=== PATIENT | female | born 1990 | race American Indian/Alaskan Native ===

== ENCOUNTER 2017-05-27 14:33 | Emergency (ER) | payer MEDICAID, OTHER ==
[2017-05-27 14:34] VITALS: BMI 25.7
[2017-05-27 14:44] VITALS: BP 119/41; PULSE 82; RESP 16; TEMP 97.9; O2SAT 100
--- NOTE | 2017-05-27 15:05 | ED PDOC ---
HPI: CCC, URI, Sore Throat Time Seen by Provider: 05/27/17 14:50 Chief Complaint (Nursing): Flu-like Symptoms Chief Complaint (Provider): Body aches and productive cough History Per: Patient History/Exam Limitations: no limitations Onset/Duration Of Symptoms: Other (Two weeks) Current Symptoms Are (Timing): Still Present Sick Contacts (Context): None Additional Complaint(s): Patient is a 26 y/o female with a past medical history of asthma presenting to the emergency department for body aches, head pain, sore throat, a productive cough, and several episodes of emesis (last episode was yesterday) ongoing for two weeks ago. Also notes pleuritic chest pain and a fever of which the highest temperature noted was 101 degrees F. Denies sick contacts or other complaints. Patient also expresses concern about possible STD. Admits that she had unprotected sex on 05/23/17, and reports white vaginal discharge. Denies taking any antibiotics, denies anal discharge or itchiness, vaginal or anal blisters, foul vaginal smell, white pharyngeal exudates, dysuria, painful intercourse, suprapubic pain, or other complaints. PCP: none provided. Past Medical History Reviewed: Historical Data, Nursing Documentation, Vital Signs Vital Signs: Last Vital Signs Temp 97.9 F 05/27/17 14:40 Pulse 82 05/27/17 14:40 Resp 16 05/27/17 14:40 BP 119/41 L 05/27/17 14:40 Pulse Ox 100 05/27/17 15:24 - Medical History PMH: Arthritis, Asthma, Kidney Stones, Chronic Kidney Disease Denies: Depression - Family History Family History: States: Unknown Family Hx - Social History Current smoker - smoking cessation education provided: No Ex-Smoker (has not smoked in the last 12 months): Yes Alcohol: None Drugs: Cannabis - Immunization History Hx Tetanus Toxoid Vaccination: No Hx Influenza Vaccination: No Hx Pneumococcal Vaccination: No - Home Medications Home Medications: Ambulatory Orders Medication Instructions Recorded Guaifenesin/Pseudoephedrne HCl 1 ter PO Q12H PRN #10 ter 08/22/16 [Mucinex D 600 mg-60 mg] Albuterol HFA [Ventolin HFA 90 2 puff IH Q6 #200 puff 05/27/17 mcg/actuation (8 g)] Dextromethorphan Polistirex 30 mg PO BID #100 misha.er.12h 05/27/17 [Delsym] - Allergies Allergies/Adverse Reactions: Allergies Allergy/AdvReac Type Severity Reaction Status Date / Time FISH Allergy PAIN Verified 05/27/17 14:40 mushroom Allergy SWELLING Uncoded 05/27/17 14:40 zuchini Allergy ANAPHYLAXIS Uncoded 05/27/17 14:40 Review of Systems ROS Statement: Except As Marked, All Systems Reviewed And Found Negative Constitutional: Positive for: Fever ENT: Positive for: Ear Pain (mild, bilateral), Throat Pain Respiratory: Positive for: Cough (productive), Pleuritic Pain, Sputum (green) Gastrointestinal: Positive for: Vomiting Genitourinary Female: Positive for: Vaginal Discharge (white). Negative for: Dysuria Physical Exam - Reviewed Nursing Documentation Reviewed: Yes Vital Signs Reviewed: Yes - Physical Exam Appears: Positive for: Well, Non-toxic, No Acute Distress Head Exam: Positive for: ATRAUMATIC, NORMAL INSPECTION, NORMOCEPHALIC Skin: Positive for: Normal Color, Warm, Dry Eye Exam: Positive for: Normal appearance ENT: Positive for: Normal ENT Inspection, Pharynx Is (normal), TM Is/Are (normal ). Negative for: Pharyngeal Erythema, Tonsillar Exudate, Tonsillar Swelling Cardiovascular/Chest: Positive for: Regular Rate, Rhythm Respiratory: Positive for: Normal Breath Sounds. Negative for: Accessory Muscle Use, Respiratory Distress Extremity: Positive for: Normal ROM Lymphatic: Positive for: Other (lymph node swelling noted) Neurologic/Psych: Positive for: Alert, Oriented (x3) - ECG O2 Sat by Pulse Oximetry: 100 (RA) Pulse Ox Interpretation: Normal Medical Decision Making Medical Decision Making: Time: 15:06 Initial impression: Body aches and productive cough. Initial plan: Chest X-ray ED Urine Chlamydia/gonorrhea test HSV test Rapid HIV screening Rapid Plasma Reagin Stat Reevaluation pt with negative HIV. pt advised to abstain from sexual intercourse until results are in. Chest negative. rolando d/c on deylsm for cough and albtuerol inh ~ Scribe Attestation: Documented by Yana Moreau, acting as a scribe for LUCY Payne. Provider Scribe Attestation: All medical record entries made by the Scribe were at my direction and personally dictated by me. I have reviewed the chart and agree that the record accurately reflects my personal performance of the history, physical exam, medical decision making, and the department course for this patient. I have also personally directed, reviewed, and agree with the discharge instructions and disposition. Disposition - Clinical Impression Clinical Impression: Upper respiratory infection, Sexually transmitted disease exposure - Patient ED Disposition Is Patient to be Admitted: No Counseled Patient/Family Regarding: Studies Performed, Diagnosis, Need For Followup, Rx Given - Disposition Referrals: [facility] [Outside] Disposition: Routine/Home Disposition Time: 16:58 Condition: STABLE Prescriptions: Albuterol HFA [Ventolin HFA 90 mcg/actuation (8 g)] 2 puff IH Q6 #200 puff Dextromethorphan Polistirex [Delsym] 30 mg PO BID #100 misha.er.12h Instructions: Sexually Transmitted Diseases (ED), Condom Use (ED), Safe Sex (ED ) Forms: [employer] Connect (Korean)
== END 2017-05-27 17:26 | disposition home or self-care (01) ==
LOC: H.ER 14:33
DX: J06.9 Acute upper respiratory infection, unspecified (principal); Z20.2 Contact with and (suspected) exposure to infections with a predominantly sexual mode of transmission

== ENCOUNTER 2018-06-01 14:57 | Emergency (ER) | payer MEDICAID, OTHER ==
[2018-06-01 14:58] VITALS: BMI 25.7
[2018-06-01 15:18] VITALS: BP 117/58; PULSE 71; RESP 18; TEMP 98.2; O2SAT 100
--- NOTE | 2018-06-01 15:41 | ED PDOC ---
Upper Extremity Pain/Injury Time Seen by Provider: 06/01/18 15:19 Chief Complaint (Nursing): Upper Extremity Problem/Injury Chief Complaint (Provider): Upper Extremity Problem/Injury History Per: Patient History/Exam Limitations: no limitations Onset/Duration Of Symptoms: Days Additional Complaint(s): Patient reports diffuse body aches and torso pain since this weekend when she fell down a flight of stairs at home. Patient cannot estimate how many stairs she fell down. She is unable to localize the pain, stating "it's all over" and notes it worsens with movements. Patient is also requesting a test at this time. LMP was supposed to be on May 19 but she still has not gotten it. She has not taken a test at home. She states she needs a note to be able to return to work since her fall. Otherwise: (-) numbness/loss of sensation, (-) head injury, (-) LOC, (-) dizziness, (-) headache (-) abdominal pain, (-) chest pain (-) SOB (-) fever (-) N/V (-) visual changes (-) saddle anesthesia or incontinence. PMD: No provider LMP: suppose to be on may 19 but has not gotten it yet GPA: 4,1,3 Past Medical History Reviewed: Historical Data, Nursing Documentation, Vital Signs Vital Signs: Last Vital Signs Temp 98.2 F 06/01/18 15:15 Pulse 71 06/01/18 15:15 Resp 18 06/01/18 15:15 BP 117/58 L 06/01/18 15:15 Pulse Ox 100 06/01/18 15:15 - Medical History PMH: Arthritis, Asthma, Kidney Stones - Surgical History Other surgeries: Ovarian cyst removed - Family History Family History: States: Unknown Family Hx - Social History Drugs: Cannabis - Home Medications Home Medications: Ambulatory Orders Medication Instructions Recorded Guaifenesin/Pseudoephedrne HCl 1 ter PO Q12H PRN #10 ter 08/22/16 [Mucinex D 600 mg-60 mg] Dextromethorphan Polistirex 30 mg PO BID #100 misha.er.12h 05/27/17 [Delsym] RX: Albuterol HFA [Ventolin HFA 90 2 puff IH Q6 #200 puff 05/27/17 mcg/actuation (8 g)] Acetaminophen [Acetaminophen 8 650 mg PO Q8 PRN #21 tablet.er 06/01/18 Hour] RX: Naproxen 500 mg PO BID PRN #20 tab 06/01/18 - Allergies Allergies/Adverse Reactions: Allergies Allergy/AdvReac Type Severity Reaction Status Date / Time FISH Allergy PAIN Verified 06/01/18 15:15 mushroom Allergy SWELLING Uncoded 05/27/17 14:40 [email or web address] Allergy ANAPHYLAXIS Uncoded 05/27/17 14:40 Review of Systems ROS Statement: Except As Marked, All Systems Reviewed And Found Negative Constitutional: Negative for: Fever Eyes: Negative for: Vision Change Cardiovascular: Negative for: Chest Pain Respiratory: Negative for: Cough, Shortness of Breath Gastrointestinal: Negative for: Nausea, Vomiting, Abdominal Pain Neurological: Negative for: Weakness, Numbness, Dizziness, Other (loss of consciousness) Physical Exam - Reviewed Nursing Documentation Reviewed: Yes Vital Signs Reviewed: Yes - Physical Exam Comments: GENERAL APPEARANCE: Patient is awake, alert, oriented x 3, in no acute distress. Resting comfortably. (+) odor of marijuana SKIN: Warm, dry; (-) cyanosis. HEAD: (-) scalp tenderness or hematoma (-) palpable deformity NECK: Supple, FROM (-) midline tenderness ENT: FROM of mandible. Dentition intact and nontender. (-) facial bone tenderness Lungs: (-) rales, (-) rhonchi, (-) wheezes; breath sounds equal bilaterally. Respirations even and nonlabored, speaking in full sentences. HEART AND CARDIOVASCULAR: (-) irregularity Abdomen: Soft, (-) tenderness (-) guarding (-) distention (-) palpable mass EXTREMITIES: (+) Full ROM of all joints (+) diffuse tenderness to the bilateral upper extremities (-) edema (-) erythema (-) ecchymosis (-) crepitus BACK: (+) bilateral parathoracic and paralumbar tenderness (-) midline tenderness NEURO AND PSYCH: Mental status as above. Gait: steady. Speech: clear. GS=15. entry level finance: grossly intact. Cerebellar tests grossly intact. EOMI and painless. Pupils equal and reactive. - Laboratory Results Urine POC: Negative - ECG O2 Sat by Pulse Oximetry: 100 (RA) Pulse Ox Interpretation: Normal Medical Decision Making Medical Decision Making: Initial Time: 15:20 Initial Impression: Musculoskeletal pain S/P fall, test Initial Plan: --ED test --Tylenol 650 mg PO --Re-evaluation 1540 ED test: negative --Toradol 30mg IM ordered 1625 On re-evaluation, patient reports improvement of symptoms. On exam, patient remains AAOx3, in no acute distress. Lungs clear to auscultation, cardiac RRR, abdomen soft, non-tender, repeat neuro exam shows no focal findings. Vitals stable. Lab/Diagnostic results d/w the patient in great detail. Diagnosis of musculoskeletal pain s/p fall on stairs, negative test d/w the patient. Based on history, exam and diagnostic results, plan will be for outpatient follow up with clinic. Patient instructed to follow-up with pmd / referral provided / the clinic in 1- 2 days without fail. Advised to take medication as prescribed. Return to the emergency room at any time for any new or worsening symptoms. Patient states she fully agrees with and understands discharge instructions. States that she agrees with the plan and disposition. Verbalized and repeated discharge instructions and plan. I have given the patient opportunity to ask any additional questions. Scribe Attestation: Documented by Mickey Alejo, acting as a scribe for Lachelle Conti Provider Scribe Attestation: All medical record entries made by the Scribe were at my direction and personally dictated by me. I have reviewed the chart and agree that the record accurately reflects my personal performance of the history, physical exam, medical decision making, and the department course for this patient. I have also personally directed, reviewed, and agree with the discharge instructions and disposition. Disposition - Clinical Impression Clinical Impression: Musculoskeletal pain, Negative test - Patient ED Disposition Is Patient to be Admitted: No Counseled Patient/Family Regarding: Studies Performed, Diagnosis, Need For Followup, Rx Given - Disposition Referrals: [facility] [Outside] Disposition: Routine/Home Disposition Time: 16:25 Condition: STABLE Additional Instructions: The emergency medical care you received today was directed at your acute symptoms. If you were prescribed any medication, please fill it and take as directed. It may take several days for your symptoms to resolve. Return to the Emergency Department if your symptoms worsen, do not improve, or if you have any other problems. Please contact your doctor in 2 days for re-evaluation and follow up / or call one of the physicians/clinics you have been referred to that are listed on the Patient Visit Information form that is included in your discharge packet. Bring any paperwork you were given at discharge with you along with any medications you are taking to your follow up visit. Our treatment cannot replace ongoing medical care by a primary care provider (PCP) outside of the emergency department. Prescriptions: Acetaminophen [Acetaminophen 8 Hour] 650 mg PO Q8 PRN #21 tablet.er PRN Reason: Pain, Moderate (4-7) RX: Naproxen 500 mg PO BID PRN #20 tab PRN Reason: Pain, Moderate (4-7) Instructions: Tests, Muscle and Bone Pain (DC) Forms: [employer] ([place]), [facility] ED School/Work Excuse Print Language: UPPER SORBIAN - POA Present On Arrival: None
== END 2018-06-01 16:44 | disposition home or self-care (01) ==
LOC: H.ER 14:57
DX: M79.18 Myalgia, other site (principal); W10.9XXA Fall (on) (from) unspecified stairs and steps, initial encounter; Y92.89 Other specified places as the place of occurrence of the external cause; Z32.02 Encounter for pregnancy test, result negative
CPT/HCPCS: 81025; 96372; 99283; J1885

== ENCOUNTER 2018-07-09 09:12 | Emergency (ER) | payer MEDICAID ==
[2018-07-09 09:30] VITALS: BMI 24.0
[2018-07-09 09:32] VITALS: TEMP 97.7; O2SAT 99
[2018-07-09] MEDS ORDERED: Sodium Chloride 0.9% 1,000 ML IV STA (09:55)
--- NOTE | 2018-07-09 10:49 | ED PDOC ---
HPI: Abdomen Time Seen by Provider: 07/09/18 09:45 Chief Complaint (Nursing): Abdominal Pain Chief Complaint (Provider): Abdominal Pain History Per: Patient History/Exam Limitations: no limitations Onset/Duration Of Symptoms: Days, Worse Since Current Symptoms Are (Timing): Still Present Location Of Pain/Discomfort: Suprapubic Quality Of Discomfort: "Pain" Additional Complaint(s): 27 year old female with asthma presents to the ED for an evaluation of abdominal pain onset for 3 weeks. Patient states the pain radiates to her back and ovaries. Associated with nausea, light headedness, chills and vomits whenever she consumes liquid or solid. She states her last menstrual period was on 06/10/18 and patient is sexually active. She has an appointment with her doctor next week but due to pain, she came to ED. Denies fever, diarrhea, vaginal bleeding or urinary symptoms. ANESTHESIOLOGY MEDICAL DOCTOR: Beba Joseph Past Medical History Reviewed: Historical Data, Nursing Documentation, Vital Signs Vital Signs: Last Vital Signs Temp 97.7 F 07/09/18 09:30 Pulse 74 07/09/18 09:30 Resp 18 07/09/18 09:30 BP 104/59 L 07/09/18 09:30 Pulse Ox 99 07/09/18 09:30 - Medical History PMH: Anemia, Anxiety, Asthma, Depression, Kidney Stones (4 years ago), Post Traumatic Stress Disorder, Chronic Kidney Disease Denies: Arthritis (pt denies) - Family History Family History: States: Unknown Family Hx - Social History Alcohol: None Drugs: Cannabis - Immunization History Hx Tetanus Toxoid Vaccination: No Hx Influenza Vaccination: No Hx Pneumococcal Vaccination: No - Home Medications Home Medications: Ambulatory Orders Medication Instructions Recorded Guaifenesin/Pseudoephedrne HCl 1 ter PO Q12H PRN #10 ter 08/22/16 [Mucinex D 600 mg-60 mg] Albuterol HFA [Ventolin HFA 90 2 puff IH Q6 #200 puff 05/27/17 mcg/actuation (8 g)] Dextromethorphan Polistirex 30 mg PO BID #100 misha.er.12h 05/27/17 [Delsym] Acetaminophen [Acetaminophen 8 650 mg PO Q8 PRN #21 tablet.er 06/01/18 Hour] Naproxen 500 mg PO BID PRN #20 tab 06/01/18 Naproxen [Naprosyn] 500 mg PO BID PRN #20 tablet 07/09/18 - Allergies Allergies/Adverse Reactions: Allergies Allergy/AdvReac Type Severity Reaction Status Date / Time FISH Allergy PAIN Verified 06/01/18 15:15 mushroom Allergy SWELLING Uncoded 05/27/17 14:40 [email or web address] Allergy ANAPHYLAXIS Uncoded 05/27/17 14:40 Review of Systems ROS Statement: Except As Marked, All Systems Reviewed And Found Negative Constitutional: Positive for: Chills. Negative for: Fever Cardiovascular: Negative for: Chest Pain Gastrointestinal: Positive for: Nausea, Vomiting, Abdominal Pain. Negative for: Diarrhea Genitourinary Female: Positive for: Vaginal Discharge. Negative for: Dysuria, Frequency, Incontinence, Vaginal Bleeding Neurological: Positive for: Other (light headedness) Physical Exam - Reviewed Nursing Documentation Reviewed: Yes Vital Signs Reviewed: Yes - Physical Exam Appears: Positive for: Uncomfortable, In Acute Distress Head Exam: Positive for: ATRAUMATIC, NORMAL INSPECTION, NORMOCEPHALIC Skin: Positive for: Normal Color, Warm, Dry. Negative for: Rash Eye Exam: Positive for: Normal appearance Neck: Positive for: Normal, Painless ROM, Supple. Negative for: Decreased ROM Cardiovascular/Chest: Positive for: Regular Rate, Rhythm. Negative for: Murmur Respiratory: Positive for: Normal Breath Sounds. Negative for: Decreased Breath Sounds, Wheezing, Respiratory Distress Gastrointestinal/Abdominal: Positive for: Tenderness (bilateral lower abdominal and suprapubic ) Pelvic Exam: Positive for: External Exam Normal (normal external genital, normal cervix, no erythema), Discharge (creamy mucus-like discharge on cervical area), Other (fraud examiner nurse Jumana accompanied by another nurse ). Negative for: Bimanual Exam Normal (Bimanual exam tenderness to uterine ) Back: Positive for: Normal Inspection. Negative for: L CVA Tenderness, R CVA Tenderness Extremity: Positive for: Normal ROM. Negative for: Tenderness, Pedal Edema, Deformity Neurologic/Psych: Positive for: Alert, Oriented (x3). Negative for: Motor/Sensory Deficits - Laboratory Results Result Diagrams: 07/09/18 11:20 07/09/18 12:39 - ECG O2 Sat by Pulse Oximetry: 99 (RA) Pulse Ox Interpretation: Normal Medical Decision Making Medical Decision Making: Time: 953 Initial Plan: CMP Urine Urine Dipstick CBC w/ Differential Chlamydia/ GC RNA, TMA Normal Saline 1000 Toradol 30mg Genital Culture IV Insertion Reevaluation ------ Scribe Attestation: Documented by Chani Jorgensen, acting as a scribe for Gabrielle Russo MD. Provider Scribe Attestation: All medical record entries made by the Scribe were at my direction and personally dictated by me. I have reviewed the chart and agree that the record accurately reflects my personal performance of the history, physical exam, medical decision making, and the department course for this patient. I have also personally directed, reviewed, and agree with the discharge instructions and disposition. Disposition - Clinical Impression Clinical Impression: Ovarian cyst - Patient ED Disposition Is Patient to be Admitted: No Doctor Will See Patient In The: Office Counseled Patient/Family Regarding: Diagnosis, Need For Followup, Rx Given - Disposition Referrals: [facility] [Outside] [facility] [Outside] [facility] [Outside] Disposition: Routine/Home Disposition Time: 13:09 Condition: IMPROVED Prescriptions: Naproxen [Naprosyn] 500 mg PO BID PRN #20 tablet PRN Reason: Pain, Moderate (4-7) Instructions: Ovarian Cysts Forms: [employer] ([place]) - POA Present On Arrival: None
[2018-07-09 11:41] LABS: BASO # 0.1 K/uL (0.0-0.2); EOS # 0.2 K/uL (0.0-0.7); LYMPH # 2.2 K/uL (1.0-4.3); MONO # 0.3 K/uL (0.0-0.8)
[2018-07-09 12:02] LABS: BASO % 1.5 % (0.0-2.0); EOS % 3.9 % (0.0-4.0); LYMPH % 38.6 % (20.0-40.0); MEAN CELL VOLUME 67.8 fl (81.0-99.0); MEAN CORPUSCULAR HEMOGLOBIN 19.7 pg (27.0-31.0); MEAN PLATELET VOLUME 8.1 fl (7.2-11.7); MONO % 5.4 % (0.0-10.0); NEUT # 2.9 K/uL (1.8-7.0); NEUT % 50.6 % (50.0-75.0); NRBC % 0.2 % (0.0-0.0); RBC 4.53 Mil/uL (3.80-5.20); RED CELL DISTRIBUTION WIDTH 19.7 % (11.5-14.5); WHITE BLOOD COUNT 5.8 K/uL (4.8-10.8)
[2018-07-09 12:07] LABS: HEMOGLOBIN 8.9 g/dL (12.0-16.0)
--- NOTE | 2018-07-09 12:38 | US ---
Date of service: 07/09/2018 HISTORY: Pelvic pain 3 weeks duration. LMP 06/09/2018. Irregular cycles. COMPARISON: None available. TECHNIQUE: Transvaginal only. Real -time technique with 2D, duplex and color Doppler FINDINGS: UTERUS: Measures 4.5 x 6.3 x 8.9 cm. Normal in size and appearance. No fibroid or other mass lesion seen. ENDOMETRIUM: Measures 10.0 mm in diameter. No ultrasound findings to suggest gestational sac, fluid, debris, mass or polyp or other pathologic process within the endometrium. CERVIX: No cervical abnormality identified. RIGHT OVARY: Measures 2.0 x 4.3 x 4.3 cm. No solid mass. Normal flow. Multiple subcentimeter follicles. LEFT OVARY: Measures 2.4 x 3.1 x 4.6 cm. No solid mass. Normal flow. Dominant cyst 1.7 cm. Multiple subcentimeter follicles. FREE FLUID: Trace free fluid identified in the pelvis/cul de sac. OTHER FINDINGS: Unremarkable uterus/endometrial echo complex. Bilateral subcentimeter follicles. Dominant 1.7 cm cyst left ovary. Low volume free fluid identified in the cul-de-sac. IMPRESSION: Unremarkable pelvic ultrasound.
[2018-07-09 12:58] LABS: ALB/GLOB RATIO 1.1 (1.0-2.1); ALBUMIN 3.7 g/dL (3.5-5.0); ALT/SGPT 23 U/L (9-52); AST/SGOT 24 U/L (14-36); BLOOD UREA NITROGEN 8 mg/dl (7-17); CALCIUM 8.8 mg/dL (8.4-10.2); GFR NON-AFRICAN AMERICAN > 60
[2018-07-09 13:39] VITALS: BP 110/60; PULSE 64; RESP 20
== END 2018-07-09 13:39 | disposition home or self-care (01) ==
LOC: H.ER 09:12
DX: N83.209 Unspecified ovarian cyst, unspecified side (principal)
CPT/HCPCS: 76830; 80053; 81025; 85025; 87070; 87181; 87491; 87591; 96374; 99284; J1885; J7030

== ENCOUNTER 2018-12-28 00:32 | Emergency (ER) | payer MEDICAID ==
[2018-12-28 00:32] VITALS: BMI 24.0
--- NOTE | 2018-12-28 04:33 | ED PDOC ---
HPI: Abdomen Time Seen by Provider: 12/28/18 00:46 Chief Complaint (Nursing): Abdominal Pain Chief Complaint (Provider): Abdominal Pain History Per: Patient History/Exam Limitations: no limitations Onset/Duration Of Symptoms: Days (x7) Location Of Pain/Discomfort: Other (Right sided) Associated Symptoms: Nausea, Vomiting. denies: Urinary Symptoms Additional Complaint(s): 28 years old female with history of asthma presents to ER for evaluation of difficulty moving her bowels for the past 7 days. Patient reports she had strain and right sided abdominal pain. She states today she has been feeling nauseous and vomited approximately 4 times. Patient admits to using alcohol and marijuana today. She denies vaginal bleeding or discharge, fever or any abdominal surgeries. PMD: None provided Abnormal Vaginal Bleeding: No Past Medical History Reviewed: Historical Data, Nursing Documentation, Vital Signs Vital Signs: Last Vital Signs Temp 97.6 F 12/28/18 00:42 Pulse 64 12/28/18 00:42 Resp 18 12/28/18 00:42 BP 114/75 12/28/18 00:42 Pulse Ox 99 12/28/18 00:42 Primary Care Provider: FAMILY PROVIDER,NO - Medical History PMH: Anemia, Anxiety, Asthma, Depression, Kidney Stones (4 years ago), Post Traumatic Stress Disorder, Chronic Kidney Disease Denies: Arthritis (pt denies) - Surgical History Surgical History: No Surg Hx - Family History Family History: States: Unknown Family Hx - Social History Alcohol: Social Drugs: Cannabis (Marijuana) - Immunization History Hx Tetanus Toxoid Vaccination: No Hx Influenza Vaccination: No Hx Pneumococcal Vaccination: No - Home Medications Home Medications: Ambulatory Orders Medication Instructions Recorded Guaifenesin/Pseudoephedrne HCl 1 ter PO Q12H PRN #10 ter 08/22/16 [Mucinex D 600 mg-60 mg] Albuterol HFA [Ventolin HFA 90 2 puff IH Q6 #200 puff 05/27/17 mcg/actuation (8 g)] Dextromethorphan Polistirex 30 mg PO BID #100 misha.er.12h 05/27/17 [Delsym] Acetaminophen [Acetaminophen 8 650 mg PO Q8 PRN #21 tablet.er 06/01/18 Hour] Naproxen 500 mg PO BID PRN #20 tab 06/01/18 Naproxen [Naprosyn] 500 mg PO BID PRN #20 tablet 07/09/18 Docusate Sodium [Dulcolax Stool 100 mg PO DAILY #12 capsule 12/28/18 Softener] Sod Phos,M-B/Na Phos,Di-Ba [Fleet 133 ml RC DAILY #5 enema 12/28/18 Enema] - Allergies Allergies/Adverse Reactions: Allergies Allergy/AdvReac Type Severity Reaction Status Date / Time FISH Allergy PAIN Verified 06/01/18 15:15 mushroom Allergy SWELLING Uncoded 05/27/17 14:40 zuchini Allergy ANAPHYLAXIS Uncoded 05/27/17 14:40 Review of Systems ROS Statement: Except As Marked, All Systems Reviewed And Found Negative Constitutional: Negative for: Fever Gastrointestinal: Positive for: Nausea, Vomiting, Abdominal Pain (Right sided), Other (Difficulty moving bowels) Genitourinary Female: Negative for: Vaginal Discharge, Vaginal Bleeding Physical Exam - Reviewed Nursing Documentation Reviewed: Yes Vital Signs Reviewed: Yes - Physical Exam Appears: Positive for: Well, No Acute Distress Head Exam: Positive for: ATRAUMATIC, NORMOCEPHALIC Skin: Positive for: Normal Color, Warm, Dry Eye Exam: Positive for: Normal appearance, EOMI, PERRL ENT: Positive for: Normal ENT Inspection Neck: Positive for: Normal, Painless ROM, Supple Cardiovascular/Chest: Positive for: Regular Rate, Rhythm. Negative for: Murmur Respiratory: Positive for: Normal Breath Sounds. Negative for: Wheezing Gastrointestinal/Abdominal: Positive for: Soft, Tenderness (mild to right upper and lower abdomen). Negative for: Other ( Ervin's or McBurney's sign) Back: Positive for: Normal Inspection. Negative for: L CVA Tenderness, R CVA Tenderness Extremity: Positive for: Normal ROM. Negative for: Pedal Edema, Swelling Neurological/Psych: Positive for: Awake, Alert, Oriented (x3) - ECG O2 Sat by Pulse Oximetry: 99 (RA) Pulse Ox Interpretation: Normal Medical Decision Making Medical Decision Making: Time: 110 A/P: Likely constipation --Not concerned for obstruction --Obstructive series --Enulose 30 mg PO --Motrin 600 mg PO --Zofran 8 mg PO 520 --Patient has not vomited all night in E.D., sleeping throughout stay --Informed of xray results --Encouraged plenty of fluids, dulcolax prn and enemas prn --Advised followup with PMD Scribe Attestation: Documented by Debbie Tamayo acting as a scribe for aMthieu Payne MD. Provider Scribe Attestation: All medical record entries made by the Scribe were at my direction and personally dictated by me. I have reviewed the chart and agree that the record accurately reflects my personal performance of the history, physical exam, medical decision making, and the department course for this patient. I have also personally directed, reviewed, and agree with the discharge instructions and disposition. Disposition - Clinical Impression Clinical Impression: Constipation - Patient ED Disposition Is Patient to be Admitted: No Counseled Patient/Family Regarding: Studies Performed, Diagnosis, Need For Followup, Rx Given - Disposition Referrals: Jenelle Brady [Outside] Disposition: Routine/Home Disposition Time: 05:22 Condition: IMPROVED Prescriptions: Docusate Sodium [Dulcolax Stool Softener] 100 mg PO DAILY #12 capsule Sod Phos,M-B/Na Phos,Di-Ba [Fleet Enema] 133 ml RC DAILY #5 enema Instructions: Constipation in Adults Forms: Jenelle Martinez (Kiswahili)
[2018-12-28 05:55] VITALS: BP 103/69; PULSE 69; RESP 16; TEMP 98.1; O2SAT 100
--- NOTE | 2018-12-28 08:34 | RAD ---
Date of service: 12/28/2018 PROCEDURE: Radiographs of the chest and abdomen (obstructive series) HISTORY: no BM in 7 days COMPARISON: No prior. TECHNIQUE: AP radiograph of the chest, with upright and supine radiographs of the abdomen. 3 views obtained. FINDINGS: CHEST: Lungs: Clear. Cardiovascular: Normal size heart. No pulmonary vascular congestion. No aortic atherosclerotic calcification present Pleura: No pleural fluid. No pneumothorax. Other findings: None. ABDOMEN AND PELVIS: Bowel: Moderate stool retention.. No evidence of mechanical obstruction. Free air: None. Bones: Unremarkable. Other findings: None. IMPRESSION: No pulmonary infiltrate. Moderate stool retention. No evidence of mechanical bowel obstruction.
== END 2018-12-28 05:58 | disposition home or self-care (01) ==
LOC: H.ER 00:32
DX: K59.00 Constipation, unspecified (principal)